=== PATIENT | male | born 1995 | race Caucasian/White ===

== ENCOUNTER 2024-12-29 03:42 | Emergency (ER) | payer OTHER, SELFPAY ==
[2024-12-29 03:43] VITALS: BMI 21.6
[2024-12-29 03:46] VITALS: BP 133/77; PULSE 94; RESP 17; TEMP 37.3; O2SAT 100
--- NOTE | 2024-12-29 04:27 | PD.EDRME ---
Rapid Medical Screening Exam RME Arrival date/time: 12/29/24 03:42 Chief Complaint: Weakness Time Seen by Provider: 12/29/24 03:46 Vital signs: Vital Signs Temperature 99.2 F 12/29/24 03:46 Pulse Rate 94 12/29/24 03:46 Respiratory Rate 17 12/29/24 03:46 Blood Pressure 133/77 H 12/29/24 03:46 Pulse Oximetry (%) 100 12/29/24 03:46 Oxygen Delivery Method Room Air 12/29/24 03:46 Vital signs reviewed by provider: Yes RME Narrative: 29-year-old male with past medical history of chronic pain and DVTs presents for evaluation of diffuse pain, nausea, vomiting, and generalized weakness. Patient reports he is currently on 10 mg warfarin.
--- NOTE | 2024-12-29 05:11 | PD.EDWEAK ---
ED Weakness RME/HPI General Chief complaint: Weakness Stated complaint: WEAK, DECREASED APPITITE Time Seen by Provider: 12/29/24 03:46 Source: patient Arrival date/time: 12/29/24 03:42 Mode of arrival: ambulatory Limitations: no limitations RME / HPI RME / HPI Narrative: Dr. Rangel?s Main ED Evaluation: 29-year-old male with a history of chronic pain and recurrent DVTs presents for evaluation of diffuse pain, nausea, vomiting, and generalized weakness for the past 2-3 days. Additionally, the patient reports diarrhea, fever, and chills. He has been unable to tolerate food or medications due to persistent vomiting. He reports taking warfarin 10 mg daily. He states that his narcotic prescription is due for refill today or tomorrow and that he has been without Xanax for the past 3 days. He also notes that his ADHD medication is due for refill on 12/31/24. Patient endorses history of multiple prior TIAs and strokes without residual deficits and PEs. Related Data Home Medications ?Medication ?Instructions ?Recorded ?Confirmed alprazolam 2 mg tablet 2 mg PO TID 06/02/22 06/02/22 baclofen 10 mg tablet 10 mg PO BID 06/02/22 06/02/22 hydroxychloroquine 400 mg tablet 400 mg PO QDAY 06/02/22 06/02/22 methylphenidate HCl 10 mg tablet 10 mg PO QAM 06/02/22 06/02/22 morphine 30 mg tablet, crush 30 mg PO Q12H 06/02/22 06/02/22 resistant, extended release oxycodone 10 mg tablet 10 mg PO TID PRN Pain (Scale Score 06/02/22 06/03/22 7-10) warfarin 10 mg tablet 10 mg PO Q OTHER DAY 06/02/22 06/02/22 warfarin 10 mg tablet 15 mg PO Q OTHER DAY 06/02/22 06/02/22 Allergies Allergy/AdvReac Type Severity Reaction Status Date / Time No Known Allergies Allergy Verified 06/02/22 23:16 Review of Systems Review of Systems Systems Reviewed: All systems reviewed, normal except as documented Past Medical History Past Medical History NEUROLOGIC: Positive Neurological Disorders, Cerebrovascular Accident, Transient Ischemic Attacks (TIA) and Migraine (hemiplegic) CARDIAC: Positive Deep Vein Thrombosis; Negative Cardiac Disorders or Congestive Heart Failure RESPIRATORY: Positive Pulmonary Embolism; Negative Chronic Obstructive Pulmonary Disease (COPD) or Asthma GENITOURINARY: Negative Renal Disease ENDOCRINE: Negative Diabetes Mellitus Type 1 or Diabetes Mellitus Type 2 HEMATOLOGIC: Positive Blood Disorders and Clotting Problems; Negative Sickle Cell Disease PSYCHO/SOCIAL: Positive Psychiatric Problems, Depression, Anxiety and Post Traumatic Stress Disorder OTHER HISTORY: Positive Hospitalization Family History FAMILY HISTORY: Negative Family Cardiac Disorders Surgical History OTHER SURGICAL HX: Spinal stimulator implanted - 2020 Right knee surgery x2; 2013; 2019 Social History SMOKING STATUS: Never smoker SUBSTANCE USE: does not use OCCUPATION: retired Past Medical History Comments PMH COMMENT: Antiphospholipid syndrome Multiple DVT's and PE's TIA's Chronic paiin syndrom - back pain Migraines Chronic fatigue PTSD Depression/Anxiety Sleep Apnea Tinnitis Erectile dysfunction ED Exam General Limitations: Present no limitations General appearance: Present alert and in no apparent distress Head Head exam: Present atraumatic Eye Eye exam: Present normal appearance, PERRL and EOMI ENT ENT exam: Present normal exam, normal oropharynx and mucous membranes moist Neck Neck exam: Present normal inspection, full ROM and trachea midline Chest Chest inspection: Present normal inspection and symmetric chest wall rise Respiratory Respiratory exam: Present normal lung sounds bilaterally Cardiovascular Cardiovascular exam: Present regular rate, normal rhythm and normal heart sounds Abdominal Exam Abdominal exam: Present soft and normal bowel sounds Extremities Exam Extremities exam: Present normal inspection and full ROM Back Exam Back exam: Present normal inspection and full ROM Neurological Exam Neurological exam: Present alert, oriented X3 and CN II-XII intact Psychiatric Psychiatric exam: Present normal affect and normal mood Skin Skin exam: Present warm, dry, intact and normal color Course Quality Measures none Orders Category Date Time Status IV [Insert IV] NOW Care 12/29/24 04:[address] head/brain wo con Stat Exams 12/29/24 05:14 Ordered CBC Stat Lab 12/29/24 05:33 Received CMP [Comprehensive Metabolic Panel] Stat Lab 12/29/24 05:33 Received Lipase Stat Lab 12/29/24 05:33 Received Magnesium Stat Lab 12/29/24 05:33 Received Famotidine Inj [Pepcid Inj] Med 12/29/24 05:11 Discontinued 20 mg IVP X1 ONE Morphine Inj Med 12/29/24 05:26 Discontinued 5 mg IVP X1 ONE Ondansetron Inj [Zofran Inj] Med 12/29/24 04:58 Discontinued 4 mg IV X1 ONE Sodium Chloride 0.9% 1000 ml [Ns] 1,000 ml Med 12/29/24 04:58 Active IV 999 mls/hr Vital Signs Vital signs: Vital Signs Temperature 99.2 F 12/29/24 03:46 Pulse Rate 94 12/29/24 03:46 Respiratory Rate 17 12/29/24 03:46 Blood Pressure 133/77 H 12/29/24 03:46 Pulse Oximetry (%) 100 12/29/24 03:46 Oxygen Delivery Method Room Air 12/29/24 03:46 Weakness MDM Narrative MDM Narrative:: 0600 Care signed out to [facility] provider. Past medical, surgical, social and family history reviewed. Vitals and home medications reviewed. Results and treatment plan discussed. They will assume the care of the patient at this time and will follow the patient, pending diagnostic work-up results and final disposition. Scribe Attestation: Bala Garcia am scribing for and in the presence of Dr. Rangel. Provider Notation: Although this document has been carefully reviewed, there may still be some phonetic and other typographical errors. These errors are purely grammatical due to imperfections in the software program and should not be construed in any way to compromise the substance of the patient's medical care during this visit. Patient data External records reviewed:: [facility] previous records Clinical information provided by:: patient Social determinants that could affect healthcare access:: none Patient has the following chronic illnesses:: see PMH How is presenting disease/condition affected by chronic disease/condition?: uneffected by Evaluation data The following diagnostics were reviewed and interpreted by me:: other (specify) (signed out to day shift provider) Lab and/or radiology exams considered but not ordered:: na Interpretation Summary: signed out to [facility] provider pending diagnostics Medications / Prescriptions Medications or Prescriptions considered but not ordered:: na Medication administrations:: Medication Administration History Sodium Chloride (Ns) 1,000 mls @ 999 mls/hr IV .Q1H1M ONE Stop: 12/29/24 05:58 Discontinued Medications Famotidine (Famotidine Inj 10 Mg/Ml Vial 2 Ml) 20 mg IVP X1 ONE Stop: 12/29/24 05:12 Morphine Sulfate (Morphine Sulf Inj 10 Mg/Ml Vial) 5 mg IVP X1 ONE Stop: 12/29/24 05:27 Ondansetron HCl (Ondansetron Inj 2 Mg/Ml Inj 2 Ml) 4 mg IV X1 ONE; Protocol Stop: 12/29/24 04:59 as above Consultations Consultation(s) initiated? (list below): No Diagnosis Weakness Differential Diagnosis: other (Stroke, TIA, stomach flu, influenza, narcotic withdrawal) Most likely diagnosis given after review of the tests above:: Vomiting, Weakness, Whole body pain Admission Indicated Admission indicated?: not indicated Explain why admission is indicated or not indicated:: pending diagnostics Admission Request Was there a request for admission?: No Disposition Plan Disposition Plan: other (specify) (signed out pending diagnostics) Discharge Plan Prescriptions/Referrals Prescriptions/Med Rec: No Action warfarin 10 mg Tablet 10 mg PO Q OTHER DAY Rx Instructions: on odd numbered days warfarin 10 mg Tablet 15 mg PO Q OTHER DAY Rx Instructions: on odd numbered days baclofen 10 mg Tablet 10 mg PO BID alprazolam 2 mg Tablet 2 mg PO TID oxycodone 10 mg Tablet 10 mg PO TID PRN (Reason: Pain (Scale Score 7-10)) morphine 30 mg Tablet,Oral Only,Extnd Release 30 mg PO Q12H hydroxychloroquine 400 mg Tablet 400 mg PO QDAY methylphenidate HCl 10 mg Tablet 10 mg PO QAM Referrals: Yonathan Garcia MD [Primary Care Provider] - In 1 week Problem List Clinical Impression: Vomiting, Weakness, Myalgia Patient/Caregiver Discharge Instructions Print Language: Wolof
--- NOTE | 2024-12-29 05:14 | XR_ITS ---
Examination: CT brain head without contrast. 2-D sagittal coronal reconstructions Date and time of exam:December 29, 2024 0616 hrs. Indications: Onset left-sided body weakness today, CT stroke alert brain scan May 31, 2022 CTDI: vol (mGy):48.4 DLP: (mGycm):976 Technique: Multiple CT axial sections of the brain have been obtained, 5 mm slice thickness. Contrast has not been administered. 2-D sagittal, coronal reconstructions have been obtained Low dose protocols were performed. One or more of the following dose reduction techniques were used; automated exposure control, adjustment of the mA and/or KV according to patient size, use of iterative reconstruction technique. Findings: No significant ventricular enlargement. Intra-axial or extra-axial hemorrhage density is not seen. No mass effect or midline shift Basal cisterns are not remarkable. Fourth ventricle is midline. Cranial vault intact. Impression: Negative for acute hemorrhage, mass effect or midline shift As clinically warranted, brain MRI follow-up would best assess for demyelinating disease, acute ischemic change
[2024-12-29 05:51] LABS: Basophils % (Auto) 0 % (0-2.5); Eosinophils % (Auto) 0 % (0-10); Hematocrit 34.8 % (41.0-53.0); Hemoglobin 11.5 g/dL (13.5-16.0); Immature Granulocytes % (Auto) 0 % (0-0); Immature Granulocytes Auto 0.01 Thou/mm3 (0.00-0.00); Lymphocytes # (Auto) 1.5 Thou/mm3 (1.0-4.8); Lymphocytes % (Auto) 21 % (10-50); Mean Corpuscular Hemoglobin 29.7 pg (25.0-35.0); Mean Corpuscular Volume 90 fL (80-100); Monocytes # (Auto) 0.5 Thou/mm3 (0.0-0.8); Monocytes % (Auto) 7 % (0-12); Neutrophils # (Auto) 4.8 Thou/mm3 (1.8-7.7); Neutrophils % (Auto) 71 % (37-80); Nucleated Red Blood Cell % 0 /100 WBC (0); Platelet Count 348 Thou/mm3 (140-440); RDW Standard Deviation 41.3 fL (35.1-43.9); Red Blood Count 3.87 Miln/mm3 (4.50-5.90); White Blood Count 6.8 Thou/mm3 (3.8-10.6)
[2024-12-29] MEDS: FAMOTIDINE INJ 10 MG/ML VIAL 2 ML 20 MG IVP (05:51)
[2024-12-29] MEDS: ONDANSETRON INJ 2 MG/ML INJ 2 ML 4 MG IV ×2 (05:51→07:49)
[2024-12-29] MEDS: MORPHINE SULF INJ 10 MG/ML VIAL 5 MG IVP (05:52)
[2024-12-29] MEDS: SODIUM CHLORIDE 0.9% 1000 ML 1,000 ML 999 ML IV (05:59)
[2024-12-29 06:00] VITALS: BP 103/58; PULSE 76; RESP 18; TEMP 36.8; O2SAT 96
[2024-12-29 06:17] LABS: Alanine Aminotransferase 35 U/L (10-49); Albumin/Globulin Ratio 1.7 (1.2-2.2); Alkaline Phosphatase 67 U/L (46-116); Anion Gap 10 (7-16); Aspartate Amino Transferase 24 U/L (0-34); BUN/Creatinine Ratio 9 Ratio (12-20); Bilirubin,Total 0.2 mg/dL (0.3-1.2); Blood Urea Nitrogen 6 mg/dL (9-23); Calcium 8.8 mg/dL (8.3-10.6); Calcium (Corrected) 8.8 mg/dL (8.5-10.1); Carbon Dioxide 27.5 mMol/L (20.0-31.0); Chloride 107 mMol/L (98-107); Creatinine (Component) 0.7 mg/dL (0.6-1.3); Estimated Creatinine Clearance 152.1 mL/min (>60); Globulin 2.3 gm/dL (2.3-3.5); Glucose 102 mg/dL (74-106); Lipase 42 U/L (12-53); Magnesium 2.1 mg/dL (1.6-2.6); Osmolality,Calculated 284 (275-295); Potassium 3.6 mMol/L (3.4-5.1); Sodium 144 mMol/L (136-145); Total Protein 6.3 gm/dL (5.7-8.2); eGFR > 60 See Note
--- NOTE | 2024-12-29 06:35 | PD.EDADDENDU ---
Emergency Room Addendum Addendum Narrative: 0600: Care assumed from Dr. Rangel, the previous shift emergency physician. Past medical, surgical, social and family history reviewed. Vitals and home medications reviewed. I will assume the care of the patient at this time, pending CT head report, and final disposition. Please refer to the emergency department record for history and examination from initial visit.?The following addendum documentation note is intended to reflect any pending information, findings, or radiology results not included in the patient?s initial chart. Nursing notes reviewed by me. Vital signs reviewed by me. [facility] medical records reviewed by me. Patient was last evaluated here 02/24/2024 for chest pain and was discharged home. 0620: Patient just returned from CT, at this time is in no distress. On my examination, the patient is alert and oriented, with normal vital signs. 0735: Patient remains clinically stable throughout the emergency department visit. We reviewed all the results, analysis, and treatment plans. Patient is amenable to discharge. Strict return precautions were outlined. Patient was discharged in stable condition. DISPOSITION: Home DIAGNOSIS: Vomiting, weakness, myalgia RADIOLOGY Ordering Physician: Yohan Rangel MD Date of Service: 12/29/24 Procedure(s): CT head/brain wo con Accession Number(s): [id number] cc: Willem Pineda MD; Yohan Rangel MD; Yonathan Garcia MD~ Examination: CT brain head without contrast. 2-D sagittal coronal reconstructions Date and time of exam:December 29, 2024 0616 hrs. Indications: Onset left-sided body weakness today, CT stroke alert brain scan May 31, 2022 CTDI: vol (mGy):48.4 DLP: (mGycm):976 Technique: Multiple CT axial sections of the brain have been obtained, 5 mm slice thickness. Contrast has not been administered. 2-D sagittal, coronal reconstructions have been obtained Low dose protocols were performed. One or more of the following dose reduction techniques were used; automated exposure control, adjustment of the mA and/or KV according to patient size, use of iterative reconstruction technique. Findings: No significant ventricular enlargement. Intra-axial or extra-axial hemorrhage density is not seen. No mass effect or midline shift Basal cisterns are not remarkable. Fourth ventricle is midline. Cranial vault intact. Impression: Negative for acute hemorrhage, mass effect or midline shift As clinically warranted, brain MRI follow-up would best assess for demyelinating disease, acute ischemic change Dictated By: Willem Pineda MD Signed By: <Electronically signed by Willem Pineda MD in [place]>12/29/24 0718
--- NOTE | 2024-12-29 07:27 | PC.NURSE ---
Received report and assumed care of patient. Patient sleeping in bed with no signs of distress and no complaints.
== END 2024-12-29 07:54 | disposition home or self-care (01) ==
PROVIDERS: Emergency Provider Emergency Medicine; PCP Family Medicine
DX: M79.10 Myalgia, unspecified site (principal); R11.10 Vomiting, unspecified; I69.354 Hemiplegia and hemiparesis following cerebral infarction affecting left non-dominant side
CPT/HCPCS: 36415; 70450; 80053; 83690; 83735; 85025; 96374; 96375; 96376; 99284; J2270; J2405; J3490; J7030

== ENCOUNTER → 2025-01-30 | Outpatient (CLI) | payer OTHER, SELFPAY ==
[2025-01-30 14:36] LABS: Amphetamine/Methamp Scrn,U Negative (Negative); Barbiturate Screen,Urine Negative (Negative); Benzodiazepines Screen,Urine Negative (Negative); Benzoylecgonine Screen, Ur Negative (Negative); Fentanyl Screen,Urine Negative (Negative); Opiate Screen,Urine Negative (Negative); THC Screen,Urine Negative (Negative)
== END | disposition home or self-care (01) ==
LOC: COPL 13:44 → SLDO 13:50
PROVIDERS: PCP Family Medicine; Referring Provider Family Medicine; Visit Provider Family Medicine
DX: M22.2X9 Patellofemoral disorders, unspecified knee (principal); M54.50 Low back pain, unspecified
CPT/HCPCS: 80307